=== PATIENT | male | born 1985 | race Caucasian/White ===

== ENCOUNTER 2021-06-10 07:26 | Emergency (ER) | payer SELFPAY ==
[~2021-06-10] VITALS: Ht 188 cm; Wt 163.6 kg
[~2021-06-10 07:26] MED LIST: AMOXICILLIN 50500 MG PO; CEPHALEXIN500 M1 PO; FLEXERIL 1010 MG/TAB PO; NO HOME MEDICATIONS; NORCO 325 MG-51 TAB PO; NORCO 325 MG-7.1 TAB PO; PEN-VEE K500 MG PO; PREDNISONE10 MG PO
[2021-06-10] MEDS ORDERED: CIPRO 500MG TA500 MG PO (10:24)
[2021-06-10] MEDS ORDERED: FLAGYL500 MG PO (10:24)
[2021-06-10 10:35] VITALS: BP 138/72; PULSE 80
== END 2021-06-10 10:32 | disposition home or self-care (01) ==
LOC: COL.ER 07:26
DX: K57.92 Diverticulitis of intestine, part unspecified, without perforation or abscess without bleeding (principal); G43.909 Migraine, unspecified, not intractable, without status migrainosus; Z87.891 Personal history of nicotine dependence; Z79.899 Other long term (current) drug therapy

== ENCOUNTER 2021-11-06 08:27 | Inpatient (IN) | payer BC ==
[~2021-11-06] VITALS: Ht 185.4 cm; Wt 138.9 kg
[~2021-11-06 08:27] MED LIST changes: +CIPRO 500MG TA500 MG PO; +FLAGYL500 MG PO
[2021-11-28] MEDS ORDERED: NORCO 325 MG-51 TAB PO (12:13)
[2021-12-02] VITALS (10 sets, daily range): BP systolic 108–131; BP diastolic 62–69; PULSE 55–69; TEMP 97.5–98.6
[2021-12-02 06:29] LABS: BASO # 0.1 K/mm3 (0.0-0.2); BASO % 0.7 % (0.0-2.0); EOS # 0.1 K/mm3 (0.0-0.7); GRAN # 8.1 K/mm3 (1.4-6.5); GRAN % 68.4 % (42.2-75.2); HEMATOCRIT 49.6 % (42.0-52.0); HEMOGLOBIN 16.1 g/dl (13.5-18.0); LYMPH # 2.7 K/mm3 (1.2-3.4); LYMPH % 22.8 % (20.0-51.0); MEAN CELL VOLUME 97 fl (80.0-100.0); MEAN CORPUSCULAR HEMOGLOBIN 32 pg (27-31); MEAN CORPUSCULAR HGB CONC 33 g/dl (33.0-37.0); MEAN PLATELET VOLUME 10.4 fl (7.4-10.4); MONO # 0.8 K/mm3 (0.1-0.6); MONO % 6.8 % (1.7-9.3); PLATELET COUNT 226 K/mm3 (130-400); REDCELL DISTRIBUTION WIDTH-CV 12.9 % (11.5-14.5)
[2021-12-02 06:42] LABS: BILIRUBIN,TOTAL 1.1 mg/dL (0.2-1.2); CALCIUM 8.8 mg/dL (8.4-10.2); CREATININE, serum 0.75 mg/dL (0.72-1.25); POTASSIUM 3.5 mmol/L (3.5-4.5); TOTAL PROTEIN 7.2 gm/dL (6.2-8.1)
--- NOTE | 2021-12-02 12:50 | NUR ---
Pt recently arrived to the floor from [facility]. He is drowsy, but does wake easily. Pt is alert and oriented. Has abd pain complaints, but does fall back to sleep quickly. Most pain is lower abd. Incisions all well approximated with no redness or drainage noted. Pts mother was present for a short time, but stated she would return later as pt is so sleepy now. Educated him that he is clear liquids with no straws or carbonation. Oriented pt to room, call light within reach, will continue to monitor
--- NOTE | 2021-12-02 16:00 | NUR ---
Pt continues to do well, some pain complaints, PRN Naomi was given. PT tolerating clear liquids. He has had some chicken broth and water up to this point. Pt does not request anything else at this time.
--- NOTE | 2021-12-02 17:07 | NUR ---
Pt requested some beef broth and also gave him blue gatorade and orange jello. Pts mom is at the bedside. Seemed somewhat short initially. She was upset that she hadn't heard what he had for incisions. This was initally discussed when pt first arrived to the floor from surgery. Asked if pt would like to see incisions, but he stated he did not. Educated pt that we will have him get up and walk a little tonight and that he will then need to try walking every 2 hours tomorrow. Pt verbalized understanding.
--- NOTE | 2021-12-02 18:00 | NUR ---
PT reports that he does not feel like more to eat than just the clear liquids. Pt has been up to the restroom and voided without difficulty.
--- NOTE | 2021-12-02 21:00 | NUR ---
Pt. sitting up in bed. Pt. is a&OX3, assessment complete. INT to lt. hand patent. IV fluids discontinued at this time d/t tolerating clears. Pt. reports pain at a 8 on pain scale, gave pain meds per orders. Pt. also ambulated in the halls with SALES ENGINEERING MANAGER.
[2021-12-03 00:20] VITALS: BP 135/70; PULSE 77; TEMP 98.9
[2021-12-03 04:31] VITALS: BP 127/65; PULSE 66; TEMP 99
[2021-12-03 06:45] LABS: HEMOGLOBIN 14.2 g/dl (13.5-18.0)
[2021-12-03 07:02] LABS: CALCIUM 8.5 mg/dL (8.4-10.2); CREATININE, serum 0.72 mg/dL (0.72-1.25); MAGNESIUM 1.6 mg/dL (1.6-2.6); POTASSIUM 3.6 mmol/L (3.5-4.5)
[2021-12-03 07:53] VITALS: BP 130/70; PULSE 71; TEMP 98.7
[2021-12-03] MEDS ORDERED: ROXICODONE 55 MG/TAB PO (09:56)
[2021-12-03] MEDS ORDERED: MOTRIN 600600 MG/TAB PO (09:59)
--- NOTE | 2021-12-03 10:20 | NUR ---
Basic Sciences Professor met with patient to discuss discharge planning. Patient lives in [place] with his mother, Meghan (ph#[phone]). Patient does not have a current primary care physician but was interested in a list of local PCPs. SW provided. Patient obtains medications from [facility] and does not use any DME. Patient is independent with ADLS and plans to return home at time of discharge. Patient does not have Advance Directives. Patient is not , has no children and his legal next of kin would be his mom, Meghan. Discharge Plan: Home
--- NOTE | 2021-12-03 12:24 | NUR ---
Shelley: No holiness preference Situation: Craft Coordinator stopped by on rounds Background: Has traveled around most his life. Was living in [place] but [place] was cheaper rent. Assessment: PT seem very content. PT was appreciative of visit Recommendation: Craft Coordinator will follow up as needed
== END 2021-12-03 11:20 | disposition home or self-care (01) | DRG 331 ==
LOC: INPTSU 12-02 05:19 → SURG 12-02 07:30
PROVIDERS: ADMIT Surgery
PROC: 8E0W4CZ Robotic Assisted Procedure of Trunk Region, Percutaneous Endoscopic Approach (ICD-10-PCS; 2021-12-02)
PROC: 0DTN4ZZ Resection of Sigmoid Colon, Percutaneous Endoscopic Approach (ICD-10-PCS; principal; 2021-12-02 07:30)
DX: K57.32 Diverticulitis of large intestine without perforation or abscess without bleeding (principal); K66.0 Peritoneal adhesions (postprocedural) (postinfection); F17.210 Nicotine dependence, cigarettes, uncomplicated
CPT/HCPCS: A4314; A9284; J0330; J1100; J1170; J1650; J1885; J2250; J2405; J2704; J2795; J3010; J7120

== ENCOUNTER 2021-11-28 10:13 | Emergency (ER) | payer BC ==
[~2021-11-28] VITALS: Ht 185.4 cm; Wt 144.1 kg
[2021-11-28 10:26] VITALS: TEMP 97.9
[2021-11-28 10:50] LABS: COLLECTION METHOD CLEAN CATCH
[2021-11-28 10:52] LABS: BASO # 0.1 K/mm3 (0.0-0.2); BASO % 0.6 % (0.0-2.0); EOS # 0.2 K/mm3 (0.0-0.7); EOS % 1.5 % (0.0-4.0); GRAN # 6.9 K/mm3 (1.4-6.5); GRAN % 66.6 % (42.2-75.2); HEMATOCRIT 46.4 % (42.0-52.0); HEMOGLOBIN 15.7 g/dl (13.5-18.0); LYMPH # 2.4 K/mm3 (1.2-3.4); LYMPH % 23.4 % (20.0-51.0); MEAN CELL VOLUME 95 fl (80.0-100.0); MEAN CORPUSCULAR HEMOGLOBIN 32 pg (27-31); MEAN CORPUSCULAR HGB CONC 34 g/dl (33.0-37.0); MEAN PLATELET VOLUME 9.8 fl (7.4-10.4); MONO # 0.8 K/mm3 (0.1-0.6); MONO % 7.7 % (1.7-9.3); PLATELET COUNT 208 K/mm3 (130-400); RED BLOOD COUNT 4.89 M/mm3 (4.20-5.60); REDCELL DISTRIBUTION WIDTH-CV 13.2 % (11.5-14.5)
[2021-11-28 11:04] LABS: MUCOUS Present (NOT PRESENT); PH 5 (5-8); SQUAMOUS EPITHELIAL None Seen /hpf (0-10); URINE APPEARANCE Clear (CLEAR/HAZY); URINE BACTERIA None Seen /hpf (NONE SEEN); URINE BILIRUBIN Negative (NEGATIVE); URINE BLOOD Negative (NEGATIVE); URINE COLOR Yellow (YELLOW); URINE GLUCOSE Negative (NEGATIVE); URINE KETONE Negative (NEGATIVE); URINE LEUKOCYTE ESTERASE Negative (NEGATIVE); URINE NITRATE Negative (NEGATIVE); URINE PROTEIN(semi-quant) Negative (NEGATIVE); URINE RBC 0-2 /hpf (0-2); URINE UROBILINOGEN Negative (NEGATIVE)
[2021-11-28 11:10] LABS: BILIRUBIN,TOTAL 0.8 mg/dL (0.2-1.2); C-REACTIVE PROTEIN 0.52 mg/dL (0.00-0.50); CREATININE, serum 0.82 mg/dL (0.72-1.25); POTASSIUM 3.9 mmol/L (3.5-4.5); TOTAL PROTEIN 7.2 gm/dL (6.2-8.1)
[2021-11-28] MEDS ORDERED: NORCO 325 MG-51 TAB PO (12:13)
[2021-11-28 12:25] VITALS: BP 128/76; PULSE 68
== END 2021-11-28 12:29 | disposition home or self-care (01) ==
LOC: COL.ER 10:13
PROVIDERS: Physician Assistant
DX: K57.32 Diverticulitis of large intestine without perforation or abscess without bleeding (principal); F17.210 Nicotine dependence, cigarettes, uncomplicated; Z87.19 Personal history of other diseases of the digestive system
CPT/HCPCS: J1885; J7030; Q9967

== ENCOUNTER 2023-05-11 10:21 | Emergency (ER) | payer SELFPAY ==
[~2023-05-11] VITALS: Ht 185.4 cm; Wt 159.1 kg
[~2023-05-11 10:21] MED LIST changes: +MOTRIN 600600 MG/TAB PO; +ROXICODONE 55 MG/TAB PO
[2023-05-11 10:25] VITALS: TEMP 97.7
[2023-05-11] MEDS ORDERED: AMOXICILLIN 8751 TAB PO (11:03)
[2023-05-11 11:24] VITALS: BP 130/88; PULSE 88
== END 2023-05-11 11:41 | disposition home or self-care (01) ==
LOC: COL.ER 10:21
DX: S81.851A Open bite, right lower leg, initial encounter (principal); S61.451A Open bite of right hand, initial encounter; F17.210 Nicotine dependence, cigarettes, uncomplicated; W54.0XXA Bitten by dog, initial encounter